=== PATIENT | female | born 1930 | race Caucasian/White ===

== ENCOUNTER 2017-06-29 09:22 | Inpatient (IN) | payer MEDICARE, BC ==
[~2017-06-29 09:22] MED LIST: Sodium Polystyrene Sulfonate 15 GM/60 ML Susp 60 ML Bot PO ONE
[2017-06-29] MEDS ORDERED: Sodium Chloride 0.9% 10 ML Syringe FLUSH PRN (09:59)
[2017-06-29] MEDS ORDERED: methylPREDNISolone Sodium Succinate 40 MG/1 ML SDV IVPUSH ONE (10:00)
[2017-06-29] MEDS ORDERED: Albuterol/Ipratropium 3.0-0.5 MG/3 ML Neb Soln NEB ONE (10:00)
[2017-06-29] MEDS ORDERED: Sodium Chloride 0.9% 500 ML IV SCH (10:00)
--- NOTE | 2017-06-29 10:32 | EDM.PDOC ---
ED HPI GENERAL MEDICAL PROBLEM - General Chief Complaint: Respiratory Problem Stated Complaint: [facility] Time Seen by Provider: 06/29/17 09:32 Source of Information: Reports: Patient, EMS History Limitations: Reports: No Limitations - History of Present Illness INITIAL COMMENTS - FREE TEXT/NARRATIVE: The patient presents with increased shortness of breath. She comes by ambulance. She was diagnosed with lung cancer 1 1/2 years ago. She opted to not treat the cancer. She has been getting progressively short of breath since before the diagnosis. She was at Dr Salinas's office on Friday and she was working on getting her some oxygen for at home. She also has some pain in her right lower chest. When EMS got her her oxygen saturations were in the 70s. They had her on 5L of oxygen by nasal cannula. She has no fever or chills. She has no abdominal pain, nausea or vomiting. She has generalized weakness and she has no appetite. She has no dysuria. The patient's fingers are purple. She does have Raynaud's phenomenon. Onset: Gradual Duration: Week(s): Location: Reports: Chest Quality: Reports: Sharp Severity: Mild Improves with: Reports: None Worsens with: Reports: None Associated Symptoms: Reports: Chest Pain, Shortness of Breath. Denies: Cough, Fever/Chills, Headaches, Nausea/Vomiting - Related Data Allergies Allergy/AdvReac Type Severity Reaction Status Date / Time No Known Allergies Allergy Verified 06/29/17 09:28 Home Meds: Home Meds Albuterol [Ventolin HFA] 2 puff INH Q4H PRN 06/29/17 [History] Hydrocodone/Acetaminophen [Hydrocodon-Acetaminophen 5-325] 1 tab PO Q4H PRN [History] Levothyroxine 75 mcg PO ACBREAKFAST 06/29/17 [History] Lisinopril 10 mg PO DAILY 06/29/17 [History] Rivaroxaban [Xarelto] 20 mg PO DAILY 06/29/17 [History] Past Medical History Cardiovascular History: Reports: Blood Clots/VTE/DVT, Hypertension Oncologic (Cancer) History: Reports: Lung Social & Family History - Tobacco Use Smoking Status *Q: Never Smoker Second Hand Smoke Exposure: Yes ED ROS GENERAL - Review of Systems Review Of Systems: See Below Constitutional: Reports: Malaise, Weakness, Fatigue. Denies: Fever, Chills HEENT: Reports: No Symptoms Respiratory: Reports: Shortness of Breath. Denies: Cough Cardiovascular: Reports: Chest Pain Endocrine: Reports: Fatigue GI/Abdominal: Reports: No Symptoms : Reports: No Symptoms Musculoskeletal: Reports: No Symptoms Skin: Reports: Other (Purple fingers) ED EXAM, GENERAL - Physical Exam Exam: See Below Exam Limited By: No Limitations General Appearance: Alert, No Apparent Distress Ears: Normal External Exam Nose: Normal Inspection Head: Atraumatic, Normocephalic Neck: Normal Inspection Respiratory/Chest: No Respiratory Distress, Decreased Breath Sounds, Wheezing ( Mild) Cardiovascular: Regular Rate, Rhythm, No Edema, No Murmur GI/Abdominal: Soft, Non-Tender, No Organomegaly, No Mass Back Exam: Normal Inspection Extremities: Normal Inspection Neurological: Alert, Oriented, No Motor/Sensory Deficits EKG INTERPRETATION EKG Date: 06/29/17 Time: 10:24 Rhythm: NSR Rate (Beats/Min): 87 [place]: Normal P-Wave: Present QRS: LBBB ST-T: Normal QT: Normal Course - Vital Signs Last Recorded V/S: Last Vital Signs Temp 96.5 F 06/29/17 09:28 Pulse 89 06/29/17 09:28 Resp 20 06/29/17 09:28 BP 131/79 06/29/17 09:28 Pulse Ox 98 06/29/17 10:00 - Orders/Labs/Meds Orders: Active Orders 24 hr Category Date Time Status Cardiac Monitoring [RC] . DIRECTED Care 06/29/17 09:59 Active EKG Documentation Completion [RC] STAT Care 06/29/17 10:00 Active Oxygen Therapy [RC] PRN Care 06/29/17 09:59 Active Peripheral IV Care [RC] . DIRECTED Care 06/29/17 09:59 Active RT Aerosol Therapy [RC] ASDIRECTED Care 06/29/17 10:00 Active Chest 1V Frontal [CR] Stat Exams 06/29/17 10:00 Taken Sodium Chloride 0.9% [Normal Saline] 1,000 ml Med 06/29/17 11:30 Active IV ASDIRECTED Sodium Chloride 0.9% [Normal Saline] 500 ml Med 06/29/17 10:00 Active IV .BOLUS Sodium Chloride 0.9% [Saline Flush] Med 06/29/17 09:59 Active 10 ml FLUSH ASDIRECTED PRN Peripheral IV Insertion Adult [OM.PC] Stat Oth 06/29/17 09:59 Ordered Medication Orders Sodium Chloride (Normal Saline) 500 mls @ 1,000 mls/hr IV .BOLUS JORGE Last Admin: 06/29/17 10:17 Dose: 1,000 mls/hr Sodium Chloride (Normal Saline) 1,000 mls @ 200 mls/hr IV ASDIRECTED JORGE Last Admin: 06/29/17 11:28 Dose: 200 mls/hr Sodium Chloride (Saline Flush) 10 ml FLUSH ASDIRECTED PRN PRN Reason: Keep Vein Open Last Admin: 06/29/17 10:32 Dose: 10 ml Labs: Laboratory Tests 06/29/17 06/29/17 Range/Units 10:05 10:05 WBC 10.40 H (3.98-10.04) K/mm3 RBC 4.21 (3.98-5.22) M/mm3 Hgb 12.0 (11.2-15.7) gm/L Hct 35.9 (34.1-44.9) % MCV 85.3 (79.4-94.8) fl MCH 28.5 (25.6-32.2) pg MCHC 33.4 (32.2-35.5) g/dl RDW Std Deviation 43.1 (36.4-46.3) fL Plt Count 332 (182-369) K/mm3 MPV 10.0 (9.4-12.3) fl Neut % (Auto) 77.8 H (34.0-71.1) % Lymph % (Auto) 5.7 L (19.3-51.7) % [place] % (Auto) 15.4 H (4.7-12.5) % Eos % (Auto) 0.1 L (0.7-5.8) Baso % (Auto) 0.1 (0.1-1.2) % Neut # (Auto) 8.10 H (1.56-6.13) K/mm3 Lymph # (Auto) 0.59 L (1.18-3.74) K/mm3 [place] # (Auto) 1.60 H (0.24-0.36) K/mm3 Eos # (Auto) 0.01 L (0.04-0.36) K/mm3 Baso # (Auto) 0.01 (0.01-0.08) K/mm3 Manual Slide Review Normal smear Sodium 122 L (136-145) mEq/L Potassium 5.7 H (3.5-5.1) mEq/L Chloride 88 L (98-107) mEq/L Carbon Dioxide 21 (21-32) mEq/L Anion Gap 18.7 H (5-15) BUN 49 H (7-18) mg/dL Creatinine 1.7 H (0.55-1.02) mg/dL Est Cr Clr Drug Dosing 17.69 mL/min Estimated GFR (MDRD) 29 (>60) mL/min BUN/Creatinine Ratio 28.8 H (14-18) Glucose 169 H (83-115) mg/dL Calcium 9.8 (8.5-10.1) mg/dL Total Bilirubin 0.5 (0.2-1.0) mg/dL AST 45 H (15-37) U/L ALT 72 H (14-59) U/L Alkaline Phosphatase 130 H (46-116) U/L Troponin I < 0.017 (0.00-0.056) ng/mL Total Protein 8.2 (6.4-8.2) g/dl Albumin 3.0 L (3.4-5.0) g/dl Globulin 5.2 gm/dL Albumin/Globulin Ratio 0.6 L (1-2) Meds: Medications Generic Name Dose Route Start Last Admin Trade Name Freq PRN Reason Stop Dose Admin Sodium Chloride 500 mls @ 1,000 mls/hr 06/29/17 10:00 06/29/17 10:17 Normal Saline IV 1,000 mls/hr .BOLUS JORGE Administration Sodium Chloride 1,000 mls @ 200 mls/hr 06/29/17 11:30 06/29/17 11:28 Normal Saline IV 200 mls/hr ASDIRECTED JORGE Administration Sodium Chloride 10 ml 06/29/17 09:59 06/29/17 10:32 Saline Flush FLUSH 10 ml ASDIRECTED PRN Administration Keep Vein Open Discontinued Medications Generic Name Dose Route Start Last Admin Trade Name Freq PRN Reason Stop Dose Admin Albuterol/Ipratropium 3 ml 06/29/17 10:00 06/29/17 10:30 Duoneb 3.0-0.5 Mg/3 Ml NEB 06/29/17 10:01 3 ml ONETIME ONE Administration Sodium Chloride 500 mls @ 1,000 mls/hr 06/29/17 10:54 Normal Saline IV 06/29/17 11:23 .BOLUS ONE Methylprednisolone Sodium Succinate 40 mg 06/29/17 10:00 06/29/17 10:17 Solu-Medrol IVPUSH 06/29/17 10:01 40 mg ONETIME ONE Administration Ondansetron HCl 4 mg 06/29/17 11:31 06/29/17 11:35 Zofran IVPUSH 06/29/17 11:32 4 mg ONETIME ONE Administration - Re-Assessments/Exams Free Text/Narrative Re-Assessment/Exam: 06/29/17 10:35 I ordered an IV NS 500ml bolus, duoneb, labs, EKG and CXR. 06/29/17 10:43 Her CXR shows cardiomegaly with small bilateral pleural effusions and mild upper lobe pulmonary vascular redistribution. Slight increased parenchymal density within the right upper and inferior right perihilar region which could represent small areas of pneumonia or atelectasis if patient has no infectious symptoms. Linear density compatible with scar or atelectasis with the left retrocardiac region. 06/29/17 11:18 Her WBC was slightly elevated at 10.4. Her Na was low at 122. Her K was elevated at 5.7. Her anion gap was elevated at 18.7. Her BUN was 49 and creatinine was 1.7. Her GFR was low at 29. Her glucose was 169. Her AST was elevated at 45 and ALT was elevated at 72. Her Alk phos was elevated at 130. Her troponin was negative. Her blood pressure when down into the mid 80s systolic. I ordered another bolus of 500mls. 06/29/17 11:54 I feel she needs to be admitted. I called Dr Kevin and he agreed to the admission. I do not feel she has pneumonia. The findings on the CXR are related to her lung cancer. Departure - Departure Time of Disposition: 12:00 Disposition: Refer to Observation Condition: Fair Clinical Impression: Hypoxia, Hyponatremia, Hyperkalemia, Renal insufficiency, Dehydration Lung cancer Qualifiers: Laterality: right Lung location: lower lobe of lung Qualified Code(s): C34.31 - Malignant neoplasm of lower lobe, right bronchus or lung Hypotension Qualifiers: Hypotension type: unspecified hypotension type Qualified Code(s): I95.9 - Hypotension, unspecified - Discharge Information Referrals: Joleen Salinas NP [Primary Care Provider] - Forms: ED Department Discharge - My Orders Last 24 Hours: My Active Orders 06/29/17 09:59 Cardiac Monitoring [RC] . DIRECTED Oxygen Therapy [RC] PRN Peripheral IV Care [RC] . DIRECTED Sodium Chloride 0.9% [Saline Flush] 10 ml FLUSH ASDIRECTED PRN Peripheral IV Insertion Adult [OM.PC] Stat 06/29/17 10:00 EKG Documentation Completion [RC] STAT RT Aerosol Therapy [RC] ASDIRECTED Chest 1V Frontal [CR] Stat Sodium Chloride 0.9% [Normal Saline] 500 ml IV .BOLUS 06/29/17 11:30 Sodium Chloride 0.9% [Normal Saline] 1,000 ml IV ASDIRECTED - Assessment/Plan Last 24 Hours: My Active Orders 06/29/17 09:59 Cardiac Monitoring [RC] . DIRECTED Oxygen Therapy [RC] PRN Peripheral IV Care [RC] . DIRECTED Sodium Chloride 0.9% [Saline Flush] 10 ml FLUSH ASDIRECTED PRN Peripheral IV Insertion Adult [OM.PC] Stat 06/29/17 10:00 EKG Documentation Completion [RC] STAT RT Aerosol Therapy [RC] ASDIRECTED Chest 1V Frontal [CR] Stat Sodium Chloride 0.9% [Normal Saline] 500 ml IV .BOLUS 06/29/17 11:30 Sodium Chloride 0.9% [Normal Saline] 1,000 ml IV ASDIRECTED
[2017-06-29] MEDS ORDERED: Sodium Chloride 0.9% 500 ML IV ONE (10:54)
[2017-06-29] MEDS ORDERED: Sodium Chloride 0.9% 1,000 ML IV SCH ×2 (11:30→15:30)
[2017-06-29] MEDS ORDERED: Ondansetron 4 MG/2 ML SDV IVPUSH ONE (11:31)
--- NOTE | 2017-06-29 12:00 | CR ---
Chest: Portable view of the chest was obtained. Comparison: No previous chest imaging is available. Heart is enlarged. Small bilateral pleural effusions are noted. Mild increased density within the right upper lung and within the right inferior perihilar region is seen. Linear density is seen within the left retrocardiac region. Minimal upper lobe vascular redistribution is seen. Impression: 1. Cardiomegaly with small bilateral pleural effusions and mild upper lobe pulmonary vascular redistribution. 2. Slight increased parenchymal density within the right upper and inferior right perihilar region which could represent small areas of pneumonia or atelectasis if patient has no infectious symptoms. 3. Linear density compatible with scar or atelectasis within the left retrocardiac region. Diagnostic code #3
[2017-06-29] MEDS ORDERED: hydrALAZINE 20 MG/ML SDV IVPUSH PRN (13:08)
[2017-06-29] MEDS ORDERED: Metoprolol Tartrate 5 MG/5 ML SDV IVPUSH PRN (13:08)
--- NOTE | 2017-06-29 13:08 | PCM.HP ---
H&P History of Present Illness - General Date of Service: 06/29/17 Admit Problem/Dx: Hypoxia Source of Information: Patient, Provider, RN Notes Reviewed History Limitations: Reports: Respiratory Distress - History of Present Illness Initial Comments - Free Text/Narative: This is an 86 yo elderly pleasant white female with past medical hx/o hypertension, history of lung cancer without treatment, hypothyroidism, Raynaud' s phenomenon, and history of VTE who presents to the emergency department with complaints of increasing shortness of breath. Patient was seen last Friday at her primary care's office for similar complaints and in the process of trying to get some oxygen for home use. Her pain is associated with chest discomfort, denies weakness, nausea without vomiting and anorexia. Prior to presentation to the emergency department, the patient was found sating in the low 70s and was on 5 L nasal cannula. Patient denies any signs of systemic infection. Her initial workup shows a CBC remarkable for WBC of 10.4, neutrophils of 77.8% , lymphocytes of 5.7%, monocytes of 15.4%, and eosinophils of 0.1%. Her chemistry is remarkable for sodium of 122, potassium of 5.7, chloride of 88, anion gap of 18.7, BUN of 49, creatinine of 1.7, glucose of 169, AST of 45, ALT of 72, alkaline phosphatase of 130, albumin of 3. Her chest x-ray reports reads cardiomegaly with small bilateral pleural effusions and mild upper lobe pulmonary vascular redistribution. Slight increased parenchymal density within the right upper and inferior right perihilar region linear density compatible with scar or atelectasis within the left retrocardiac region. Patient is being admitted primarily for end-of-life care. She is DNR/DNI with comfort measures. - Related Data Allergies/Adverse Reactions: Allergies Allergy/AdvReac Type Severity Reaction Status Date / Time No Known Allergies Allergy Verified 06/29/17 09:28 Home Medications: Home Meds Albuterol [Ventolin HFA] 2 puff INH Q4H PRN 06/29/17 [History] Hydrocodone/Acetaminophen [Hydrocodon-Acetaminophen 5-325] 1 tab PO Q4H PRN [History] Levothyroxine 75 mcg PO ACBREAKFAST 06/29/17 [History] Lisinopril 10 mg PO DAILY 06/29/17 [History] Rivaroxaban [Xarelto] 20 mg PO DAILY 06/29/17 [History] Past Medical History Cardiovascular History: Reports: Blood Clots/VTE/DVT, Hypertension Oncologic (Cancer) History: Reports: Lung Social & Family History - Tobacco Use Smoking Status *Q: Never Smoker Second Hand Smoke Exposure: Yes H&P Review of Systems - Review of Systems: Review Of Systems: See Below General: Reports: Malaise, Weakness, Fatigue. Denies: Fever, Chills HEENT: Reports: No Symptoms Pulmonary: Reports: Shortness of Breath. Denies: Pleuritic Chest Pain, Cough, Hemoptysis Cardiovascular: Denies: Chest Pain, Palpitations, Dyspnea on Exertion, Lightheadedness Gastrointestinal: Reports: Decreased Appetite, Flatus, Nausea. Denies: Abdominal Pain, Anorexia, Diarrhea, Difficulty Swallowing, Distension, Vomiting Genitourinary: Reports: No Symptoms Musculoskeletal: Reports: No Symptoms Skin: Reports: Change in Color (bilateral hands), Other (purple hands). Denies : Cyanosis, Diaphoresis, Dryness Psychiatric: Denies: Depression, Anxiety, Agitation, Suicidal Ideation Neurological: Reports: Weakness. Denies: Confusion, Dizziness, Difficulty Walking, Change in Speech, Gait Disturbance Hematologic/Lymphatic: Reports: No Symptoms Immunologic: Reports: No Symptoms Exam - Exam Exam: See Below - Vital Signs Vital Signs: Last Vital Signs Temp 35.8 C 06/29/17 09:28 Pulse 89 06/29/17 09:28 Resp 20 06/29/17 09:28 BP 131/79 06/29/17 09:28 Pulse Ox 98 06/29/17 10:00 Weight: 49.895 kg - Exam Quality Assessment: Supplemental Oxygen General: Alert, Oriented, Cooperative. No: Mild Distress HEENT: Conjunctiva Clear, EACs Clear, EOMI, Hearing Intact, Mucosa Moist & Vernal , Nares Patent, Normal Nasal Septum, Posterior Pharynx Clear, Pupils Reactive, TMs Clear Neck: Supple, Trachea Midline Lungs: Normal Respiratory Effort, Decreased Breath Sounds Cardiovascular: Regular Rate, Regular Rhythm GI/Abdominal Exam: Soft, Non-Tender, No Organomegaly, No Distention, No Abnormal Bruit, No Mass, Pelvis Stable, Abnormal Bowel Sounds (Female) Exam: Deferred Rectal (Female) Exam: Deferred Back Exam: Normal Inspection, Decreased Range of Motion Extremities: Normal Inspection, Normal Range of Motion, Non-Tender, No Pedal Edema, Normal Capillary Refill Peripheral Pulses: 2+: Posterior Tibial (L), Posterior Tibial (R), Dorsalis Pedis (L), Dorsalis Pedis (R) Skin: Warm, Dry, Intact Neuro Extensive - Mental Status: Oriented x3, Normal Cognition, Disorientation to Person Neuro Extensive - Motor, Sensory, Reflexes: CN II-XII Intact Psychiatric: Alert, Normal Affect, Normal Mood - Patient Data Lab Results Last 24 hrs: Laboratory Results - last 24 hr 06/29/17 06/29/17 Range/Units 10:05 10:05 WBC 10.40 H (3.98-10.04) K/mm3 RBC 4.21 (3.98-5.22) M/mm3 Hgb 12.0 (11.2-15.7) gm/L Hct 35.9 (34.1-44.9) % MCV 85.3 (79.4-94.8) fl MCH 28.5 (25.6-32.2) pg MCHC 33.4 (32.2-35.5) g/dl RDW Std Deviation 43.1 (36.4-46.3) fL Plt Count 332 (182-369) K/mm3 MPV 10.0 (9.4-12.3) fl Neut % (Auto) 77.8 H (34.0-71.1) % Lymph % (Auto) 5.7 L (19.3-51.7) % [place] % (Auto) 15.4 H (4.7-12.5) % Eos % (Auto) 0.1 L (0.7-5.8) Baso % (Auto) 0.1 (0.1-1.2) % Neut # (Auto) 8.10 H (1.56-6.13) K/mm3 Lymph # (Auto) 0.59 L (1.18-3.74) K/mm3 [place] # (Auto) 1.60 H (0.24-0.36) K/mm3 Eos # (Auto) 0.01 L (0.04-0.36) K/mm3 Baso # (Auto) 0.01 (0.01-0.08) K/mm3 Manual Slide Review Normal smear Sodium 122 L (136-145) mEq/L Potassium 5.7 H (3.5-5.1) mEq/L Chloride 88 L (98-107) mEq/L Carbon Dioxide 21 (21-32) mEq/L Anion Gap 18.7 H (5-15) BUN 49 H (7-18) mg/dL Creatinine 1.7 H (0.55-1.02) mg/dL Est Cr Clr Drug Dosing 17.69 mL/min Estimated GFR (MDRD) 29 (>60) mL/min BUN/Creatinine Ratio 28.8 H (14-18) Glucose 169 H (83-115) mg/dL Calcium 9.8 (8.5-10.1) mg/dL Total Bilirubin 0.5 (0.2-1.0) mg/dL AST 45 H (15-37) U/L ALT 72 H (14-59) U/L Alkaline Phosphatase 130 H (46-116) U/L Troponin I < 0.017 (0.00-0.056) ng/mL Total Protein 8.2 (6.4-8.2) g/dl Albumin 3.0 L (3.4-5.0) g/dl Globulin 5.2 gm/dL Albumin/Globulin Ratio 0.6 L (1-2) Result Diagrams: 06/29/17 10:05 06/29/17 17:28 EKG INTERPRETATION EKG Date: 06/29/17 Time: 10:24 Rhythm: NSR Rate (Beats/Min): 87 [place]: Normal P-Wave: Present QRS: LBBB ST-T: Normal QT: Normal *Q Meaningful Use (ADM) - VTE *Q VTE Criteria *Q: - Stroke *Q Stroke Criteria *Q: - AMI *Q AMI Criteria *Q: Problem List Initiated/Reviewed/Updated: Yes Orders Last 24hrs: Active Orders 24 hr Category Date Time Status Cardiac Monitoring [RC] . DIRECTED Care 06/29/17 09:59 Active EKG Documentation Completion [RC] STAT Care 06/29/17 10:00 Active Oxygen Therapy [RC] PRN Care 06/29/17 09:59 Active Peripheral IV Care [RC] . DIRECTED Care 06/29/17 09:59 Active RT Aerosol Therapy [RC] ASDIRECTED Care 06/29/17 10:00 Active Sodium Chloride 0.9% [Normal Saline] 1,000 ml Med 06/29/17 11:30 Active IV ASDIRECTED Sodium Chloride 0.9% [Normal Saline] 500 ml Med 06/29/17 10:00 Active IV .BOLUS Sodium Chloride 0.9% [Saline Flush] Med 06/29/17 09:59 Active 10 ml FLUSH ASDIRECTED PRN Peripheral IV Insertion Adult [OM.PC] Stat Oth 06/29/17 09:59 Ordered Medication Orders Sodium Chloride (Normal Saline) 500 mls @ 1,000 mls/hr IV .BOLUS JORGE Last Admin: 06/29/17 10:17 Dose: 1,000 mls/hr Sodium Chloride (Normal Saline) 1,000 mls @ 200 mls/hr IV ASDIRECTED JORGE Last Admin: 06/29/17 11:28 Dose: 200 mls/hr Sodium Chloride (Saline Flush) 10 ml FLUSH ASDIRECTED PRN PRN Reason: Keep Vein Open Last Admin: 06/29/17 10:32 Dose: 10 ml Assessment/Plan Comment:: Assessment/Plan: Acute: End of Life Care -Initial Admission -Carries a hx/o Lung Cancer Diagnosed 1/5 years Ago -She refused treatment and leave it to nature -She had been getting short of breath -Had seen her PCP this past Friday and in the process of getting her some Supplemental O2 for home use -She want's to be made comfortable with treatment -Patient is amenable to hospice/palliative consult Hypoxia/Shortness of Breath -2/2 Worsening Lung Cancer -CXR report reads cardiomegaly with small bilateral pleural effusions and mild upper lobe pulmonary vascular redistribution. Slight increased parenchymal density within the right upper any PE or perihilar region. Density compatible with scar atelectasis within the left retrocardiac region -Supplemental O2 to titrate to keep O2 sat at or > 92% -PRN Morphine for Dyspnea -Abx not indicated; she has no cough or fever Dehydration -2/2 poor oral intake/Anorexia -She has no appetite -IV Hydration -Monitor volume status FRANKIE -2/2 Volume Depletion and Poor Oral Intake -BUN 49; Cr 1.8; no baseline level -IV Hydration -Monitor output Hyponatremia -Na 122 -She is not on SSRIs of thiazide diuretics -Cannot r/o SIADH due to lung cancer; common with small cell lung carcinoma -Serum and Urine Osmolality -Already received NS and IVF in ED -Will switch to D5WNS and monitor response Hyperkalemia -K 5.7 -Kayexalate 45 mg po x1 and may repeat in AM -D5w and Insulin 10 units x1 -Re-check level Small Bilateral Pleural Effusion -Likely from malignancy -Monitor Chronic: HTN Lung Cancer Hypothyroidism Raynaud's Phenomenon 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
[2017-06-29] MEDS ORDERED: Promethazine 6.25 MG in Sodium Chloride 0.9% 50 ML IV PRN (13:09)
[2017-06-29] MEDS ORDERED: oxyCODONE 5 MG Tab PO PRN (13:09)
[2017-06-29] MEDS ORDERED: LORazepam 2 MG/ML MDV IV PRN (13:09)
[2017-06-29] MEDS ORDERED: HYDROmorphone 1 MG/ML Syringe IVPUSH PRN (13:09)
[2017-06-29] MEDS ORDERED: Acetaminophen 325 MG Tab PO PRN (13:09)
[2017-06-29] MEDS ORDERED: Bisacodyl 5 MG Tab PO PRN (13:11)
[2017-06-29] MEDS ORDERED: Temazepam 7.5 MG Cap PO PRN (13:11)
[2017-06-29] MEDS ORDERED: Docusate Sodium 100 MG Cap PO PRN (13:11)
[2017-06-29] MEDS ORDERED: Albuterol/Ipratropium 3.0-0.5 MG/3 ML Neb Soln NEB PRN (13:11)
[2017-06-29] MEDS ORDERED: Polyethylene Glycol 3350 Powder 17 GM Packet PO PRN (13:11)
[2017-06-29] MEDS ORDERED: ALBUTEROL INH PRN (13:14)
[2017-06-29] MEDS: Dronabinol 2.5 MG Cap PO SCH (17:34)
[2017-06-29] MEDS ORDERED: Sodium Polystyrene Sulfonate 15 GM/60 ML Susp 60 ML Bot PO ONE ×2 (19:53→23:45)
[2017-06-29] MEDS ORDERED: 50% Dextrose in Water 50 ML Syringe IVPUSH PRN (20:36)
[2017-06-29] MEDS ORDERED: Insulin NPH/Insulin Regular,Human 70-30 100 Units/ML 10 ML Vial SUBCUT ONE (20:42)
[2017-06-29] MEDS ORDERED: Dextrose 5%-0.9% NaCl 1,000 ML IV SCH (20:45)
[2017-06-29] MEDS ORDERED: Sodium Chloride 3% 500 ML IV SCH (20:45)
[2017-06-29] MEDS ORDERED: Megestrol 40 MG Tab PO SCH (21:00)
[2017-06-30] MEDS: Ondansetron 4 MG/2 ML SDV IV PRN ×2 (00:10→15:33)
[2017-06-30] MEDS ORDERED: Insulin Regular, Human 100 Units/ML 3 ML Vial SUBCUT ONE ×2 (00:15→23:45)
[2017-06-30] MEDS ORDERED: LEVOTHYROXINE 75 MCG PO SCH (06:00)
[2017-06-30] MEDS ORDERED: Diatrizoate Meglumine/Diatrizoate Sodium 37% 120 ML Bottle PO ONE (07:56)
[2017-06-30] MEDS ORDERED: Sodium Polystyrene Sulfonate 15 GM/60 ML Susp 60 ML Bot PO ONE (08:00)
--- NOTE | 2017-06-30 08:42 | CT ---
CT abdomen and pelvis Technique: Multiple axial sections were obtained from above the dome of the diaphragm inferiorly through the pubic symphysis. Oral contrast was utilized. No intravenous contrast is seen. Findings: Large pericardial effusion is seen. Small bilateral pleural effusions are noted. Atelectasis is seen within portions of the left lower lung and within the right middle lobe. Small amount of ascites is identified around the liver as well as small amount of free fluid within the pelvis. Stomach is dilated but shows no complete obstruction as contrast is seen within more distal bowel. Gastroparesis or partial gastric outlet obstruction is difficult to exclude. Noncontrast appearance of the kidneys appear within normal limits. Pancreas appears within normal limits. Gallbladder contains no calcified gallstones. Aorta shows atherosclerotic change which continues into the iliac vessels. Spleen appears within normal limits. Liver shows no focal parenchymal abnormality. No pelvic mass or adenopathy is seen. Bone window settings were reviewed which show severe disc space narrowing at L3-L4 through L5-S1 with vacuum phenomena. Degenerative apophyseal change also noted at these same levels. Lesser degenerative change is seen within other portions of the spine. Impression: 1. Small bilateral pleural effusions with bibasilar atelectasis. 2. Large pericardial effusion. 3. Small amount of ascites. 4. Dilated stomach containing contrast. Contrast noted within more distal portions of bowel ruling out complete gastric obstruction 5. Other incidental findings. Diagnostic code #3
[2017-06-30] MEDS ORDERED: HYDROmorphone 0.5 MG/0.5 ML Syringe IVPUSH PRN (08:45)
--- NOTE | 2017-06-30 08:58 | PCM.PN ---
- General Info Date of Service: 06/30/17 Admission Dx/Problem (Free Text): Hypoxia Subjective Update: Follow Up - Patient Data Vitals - Most Recent: Last Vital Signs Temp 36.6 C 06/30/17 04:00 Pulse 82 06/30/17 08:00 Resp 21 H 06/30/17 08:00 BP 94/76 06/30/17 08:00 Pulse Ox 91 L 06/30/17 08:00 Weight - Most Recent: 49.895 kg I&O - Last 24 Hours: Intake & Output 06/29/17 06/30/17 06/30/17 22:59 06:59 14:59 Intake Total 1957 1554 Balance 1957 1553 Lab Results Last 24 Hours: Laboratory Results - last 24 hr 06/29/17 06/30/17 06/30/17 Range/Units 17:28 05:45 05:45 WBC 11.40 H (3.98-10.04) K/mm3 RBC 3.85 L (3.98-5.22) M/mm3 Hgb 11.1 L (11.2-15.7) gm/L Hct 33.6 L (34.1-44.9) % MCV 87.3 (79.4-94.8) fl MCH 28.8 (25.6-32.2) pg MCHC 33.0 (32.2-35.5) g/dl RDW Std Deviation 45.3 (36.4-46.3) fL Plt Count 341 (182-369) K/mm3 MPV 10.7 (9.4-12.3) fl Neut % (Auto) 65.7 (34.0-71.1) % Lymph % (Auto) 6.0 L (19.3-51.7) % [place] % (Auto) 26.3 H (4.7-12.5) % Eos % (Auto) 0.1 L (0.7-5.8) Baso % (Auto) 0.2 (0.1-1.2) % Neut # (Auto) 7.50 H (1.56-6.13) K/mm3 Lymph # (Auto) 0.68 L (1.18-3.74) K/mm3 [place] # (Auto) 3.00 H (0.24-0.36) K/mm3 Eos # (Auto) 0.01 L (0.04-0.36) K/mm3 Baso # (Auto) 0.02 (0.01-0.08) K/mm3 Manual Slide Review Abnormal smear Sodium 125 L 126 L (136-145) mEq/L Potassium 6.0 H 6.0 H (3.5-5.1) mEq/L Chloride 93 L 95 L (98-107) mEq/L Carbon Dioxide 21 18 L (21-32) mEq/L Anion Gap 17.0 H 19.0 H (5-15) BUN 53 H 58 H (7-18) mg/dL Creatinine 1.8 H 2.6 H (0.55-1.02) mg/dL Est Cr Clr Drug Dosing 16.71 11.57 mL/min Estimated GFR (MDRD) 27 18 (>60) mL/min BUN/Creatinine Ratio 29.4 H 22.3 H (14-18) Glucose 144 H 167 H (83-115) mg/dL Calcium 8.7 8.2 L (8.5-10.1) mg/dL Magnesium 2.4 (1.8-2.4) mg/dl Med Orders - Current: Current Medications Acetaminophen (Tylenol) 650 mg PO Q4H PRN PRN Reason: Pain (Mild 1-3)/fever Albuterol (Proventil Hfa) 0 gm INH Q4H PRN PRN Reason: Shortness of Breath Albuterol/Ipratropium (Duoneb 3.0-0.5 Mg/3 Ml) 3 ml NEB Q4H PRN PRN Reason: Shortness Of Breath/wheezing Bisacodyl (Dulcolax) 5 mg PO DAILY PRN PRN Reason: Constipation Docusate Sodium (Colace) 100 mg PO BID PRN PRN Reason: Constipation Dronabinol (Marinol) 2.5 mg PO TIDAC [facility] Last Admin: 06/29/17 17:34 Dose: Not Given Hydralazine HCl (Apresoline) 10 mg IVPUSH Q4H PRN PRN Reason: Hypertension Hydromorphone HCl (Dilaudid) 0.25 mg IVPUSH Q2H PRN PRN Reason: Pain (severe 7-10) Promethazine HCl 6.25 mg/ (Sodium Chloride) 50.25 mls @ 100 mls/hr IV Q6H PRN PRN Reason: Nausea/Vomiting Dextrose/Sodium Chloride (Dextrose 5%-Normal Saline) 1,000 mls @ 125 mls/hr IV ASDIRECTED [facility] Last Admin: 06/30/17 00:10 Dose: 125 mls/hr Lorazepam (Ativan) 0.5 mg IV Q6H PRN PRN Reason: Anxiety Magnesium Sulfate (Pharmacy To Dose - Magnesium Replacement) 1 dose .XX ASDIRECTED [facility] Megestrol Acetate (Megace 40 Mg/Ml Susp) 400 mg PO BID [facility] Metoprolol Tartrate (Lopressor) 5 mg IVPUSH Q4H PRN PRN Reason: Tachycardia Levothyroxine [ Levothyroxine] 75mcg Own Med 75 mcg PO ACBREAKFAST [facility] Last Admin: 06/30/17 06:27 Dose: 75 mcg Rivaroxaban [Xarelto (] 20mg Own Med ) 20 mg PO DAILY [facility] Ondansetron HCl (Zofran) 4 mg IV Q4H PRN PRN Reason: Nausea/Vomiting Last Admin: 06/30/17 00:10 Dose: 4 mg Oxycodone HCl (Oxycodone) 5 mg PO Q4H PRN PRN Reason: Pain (moderate 4-6) Polyethylene Glycol (Miralax) 17 gm PO DAILY PRN PRN Reason: Constipation Potassium Chloride (Pharmacy To Dose - Potassium Replacement) 1 dose .XX ASDIRECTED [facility] Senna/Docusate Sodium (Senna Plus) 1 tab PO BID PRN PRN Reason: Constipation Sodium Chloride (Saline Flush) 10 ml FLUSH ASDIRECTED PRN PRN Reason: Keep Vein Open Last Admin: 06/29/17 10:32 Dose: 10 ml Temazepam (Restoril) 7.5 mg PO BEDTIME PRN PRN Reason: Sleep Discontinued Medications Albuterol/Ipratropium (Duoneb 3.0-0.5 Mg/3 Ml) 3 ml NEB ONETIME ONE Stop: 06/29/17 10:01 Last Admin: 06/29/17 10:30 Dose: 3 ml Dextrose/Water (Dextrose 50% In Water) 50 ml IVPUSH ASDIRECTED PRN PRN Reason: Other Diatrizoate Meglum/Diatrizoate Sod (Gastrografin 37%) 90 ml PO ONETIME ONE Stop: 06/30/17 07:57 Last Admin: 06/30/17 08:07 Dose: 90 ml Hydromorphone HCl (Dilaudid) 0.25 mg IVPUSH Q2H PRN PRN Reason: Pain (severe 7-10) Last Admin: 06/29/17 21:07 Dose: 0.25 mg Sodium Chloride (Normal Saline) 500 mls @ 1,000 mls/hr IV .BOLUS [facility] Last Admin: 06/29/17 10:17 Dose: 1,000 mls/hr Sodium Chloride (Normal Saline) 500 mls @ 1,000 mls/hr IV .BOLUS ONE Stop: 06/29/17 11:23 Last Admin: 06/29/17 16:13 Dose: Not Given Sodium Chloride (Normal Saline) 1,000 mls @ 200 mls/hr IV ASDIRECTED [facility] Last Admin: 06/29/17 11:28 Dose: 200 mls/hr Sodium Chloride (Normal Saline) 1,000 mls @ 100 mls/hr IV ASDIRECTED [facility] Last Admin: 06/29/17 16:26 Dose: 100 mls/hr Sodium Chloride (Sodium Chloride 3%) 500 mls @ 25 mls/hr IV ASDIRECTED [facility] Insulin Human Regular (Humulin R) 10 unit SUBCUT ONETIME ONE Stop: 06/30/17 00:16 Last Admin: 06/30/17 00:14 Dose: 10 unit Megestrol Acetate (Megace) 40 mg PO BID [facility] Last Admin: 06/29/17 21:37 Dose: Not Given Methylprednisolone Sodium Succinate (Solu-Medrol) 40 mg IVPUSH ONETIME ONE Stop: 06/29/17 10:01 Last Admin: 06/29/17 10:17 Dose: 40 mg Ondansetron HCl (Zofran) 4 mg IVPUSH ONETIME ONE Stop: 06/29/17 11:32 Last Admin: 06/29/17 11:35 Dose: 4 mg Sodium Polystyrene Sulfonate (Kayexalate) 45 gm PO ONETIME ONE Stop: 06/29/17 08:01 Last Admin: 06/29/17 23:18 Dose: Not Given Sodium Polystyrene Sulfonate (Kayexalate) 45 gm PO NOW ONE Stop: 06/29/17 23:46 Last Admin: 06/30/17 00:10 Dose: 45 gm Sodium Polystyrene Sulfonate (Kayexalate) 45 gm PO ONETIME ONE Stop: 06/30/17 08:01 - My Orders Last 24 Hours: My Active Orders 06/29/17 13:08 Metoprolol Tartrate [Lopressor] 5 mg IVPUSH Q4H PRN hydrALAZINE [Apresoline] 10 mg IVPUSH Q4H PRN 06/29/17 13:09 Height and Weight [RC] 0400 Up With Assistance [RC] ASDIRECTED Up ad Priscilla [RC] ASDIRECTED VTE/DVT Education [RC] 10 Vital Signs [RC] Q4HR Acetaminophen [Tylenol] 650 mg PO Q4H PRN LORazepam [Ativan] 0.5 mg IV Q6H PRN Ondansetron [Zofran] 4 mg IV Q4H PRN Promethazine [Phenergan] 6.25 mg Sodium Chloride 0.9% [Normal Saline] 50 ml IV Q6H oxyCODONE 5 mg PO Q4H PRN Resuscitation Status Routine 06/29/17 13:11 Oxygen Therapy [RC] PRN VTE/DVT Education [RC] PER UNIT ROUTINE Albuterol/Ipratropium [DuoNeb 3.0-0.5 MG/3 ML] 3 ml NEB Q4H PRN Bisacodyl [Dulcolax] 5 mg PO DAILY PRN Docusate Sodium [Colace] 100 mg PO BID PRN Docusate Sodium/Sennosides [Senna Plus] 1 tab PO BID PRN Polyethylene Glycol 3350 [MiraLAX] 17 gm PO DAILY PRN Temazepam [Restoril] 7.5 mg PO BEDTIME PRN 06/29/17 13:12 Consult to Case Management [CONS] Routine Consult to Tar Pot Worker [CONS] Routine Consult to Spiritual Care [CONS] Routine OT Evaluation and Treatment [CONS] Routine PT Evaluation and Treatment [CONS] Routine Respiratory Care Assess and Treatment [CONS] Routine 06/29/17 13:14 Albuterol [Proventil HFA] 0 gm INH Q4H PRN 06/29/17 13:15 Magnesium Rep Pharmacy to Dose [Pharmacy to Dose - Magnesium Replacement] 1 dose .XX ASDIRECTED Potassium Rep Pharmacy to Dose [Pharmacy to Dose - Potassium Replacement] 1 dose .XX ASDIRECTED 06/29/17 17:00 Dronabinol [Marinol] 2.5 mg PO TIDAC 06/29/17 20:20 Consult to End of Life Care [Consult to Palliative Care] [CONS] Routine 06/29/17 20:31 OSMOLALITY,URINE [URCHEM] Stat 06/29/17 20:45 Dextrose 5%-0.9% NaCl [Dextrose 5%-Normal Saline] 1,000 ml IV ASDIRECTED 06/29/17 Lunch Regular Diet [DIET] 06/30/17 06:00 Levothyroxine [Levothyroxine] 75 mcg PO ACBREAKFAST 06/30/17 08:45 HYDROmorphone [Dilaudid] 0.25 mg IVPUSH Q2H PRN 06/30/17 09:00 Megestrol [Megace 40 MG/ML Susp] 400 mg PO BID Rivaroxaban [Xarelto] 20 mg PO DAILY 07/01/17 05:11 BASIC METABOLIC PANEL,BMP [CHEM] AM CBC WITH AUTO DIFF [HEME] AM MAGNESIUM [CHEM] AM 07/02/17 05:11 BASIC METABOLIC PANEL,BMP [CHEM] AM CBC WITH AUTO DIFF [HEME] AM MAGNESIUM [CHEM] AM 07/03/17 05:11 BASIC METABOLIC PANEL,BMP [CHEM] AM CBC WITH AUTO DIFF [HEME] AM MAGNESIUM [CHEM] AM - Plan Plan:: Assessment/Plan: Acute: End of Life Care -Initial Admission -Carries a hx/o Lung Cancer Diagnosed 1/5 years Ago -She refused treatment and leave it to nature -She had been getting short of breath -Had seen her PCP this past Friday and in the process of getting her some Supplemental O2 for home use -She want's to be made comfortable with treatment -Patient is amenable to hospice/palliative consult Hypoxia/Shortness of Breath -2/2 Worsening Lung Cancer -CXR report reads cardiomegaly with small bilateral pleural effusions and mild upper lobe pulmonary vascular redistribution. Slight increased parenchymal density within the right upper any PE or perihilar region. Density compatible with scar atelectasis within the left retrocardiac region -Supplemental O2 to titrate to keep O2 sat at or > 92% -PRN Morphine for Dyspnea -Abx not indicated; she has no cough or fever Dehydration -2/2 poor oral intake/Anorexia -She has no appetite -IV Hydration -Monitor volume status FRANKIE -2/2 Volume Depletion and Poor Oral Intake -BUN 49; Cr 1.8; no baseline level -IV Hydration -Monitor output Hyponatremia -Na 122 -She is not on SSRIs of thiazide diuretics -Cannot r/o SIADH due to lung cancer; common with small cell lung carcinoma -Serum and Urine Osmolality -Already received NS and IVF in ED -Will switch to D5WNS and monitor response Hyperkalemia -K 5.7 -Kayexalate 45 mg po x1 and may repeat in AM -D5w and Insulin 10 units x1 -Re-check level Small Bilateral Pleural Effusion -Likely from malignancy -Monitor Chronic: HTN Lung Cancer Hypothyroidism Raynaud's Phenomenon 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
[2017-06-30] MEDS ORDERED: RIVAROXABAN 20 MG PO SCH (09:00)
[2017-06-30] MEDS: Dronabinol 2.5 MG Cap PO SCH ×3 (09:30→17:16)
[2017-06-30] MEDS: Megestrol Susp 40 MG/ML 10 ML UD Cup PO SCH ×2 (09:30→20:38)
[2017-06-30] MEDS ORDERED: Morphine 2 MG/ML Syringe IVPUSH PRN (16:37)
[2017-06-30] MEDS ORDERED: LORazepam 2 MG/ML MDV IV PRN ×2 (16:39→18:24)
[2017-06-30] MEDS ORDERED: Morphine 4 MG/ML Syringe IVPUSH PRN ×2 (16:48→18:24)
[2017-06-30] MEDS ORDERED: Morphine 4 MG/ML Syringe IVPUSH ONE (18:20)
--- NOTE | 2017-06-30 21:10 | PCM.DCSUM1 ---
Discharge Summary - Hospital Course Brief History: This is an 86 yo elderly pleasant white female with past medical hx/o hypertension, history of lung cancer without treatment, hypothyroidism, Raynaud's phenomenon, and history of VTE who presented to the emergency department with complaints of increasing shortness of breath. She was admitted for end of life care. - Discharge Data Discharge Date: 06/30/17 Discharge Disposition: 20 Condition: Good - Discharge Diagnosis/Problem(s) (1) Admission for end of life care SNOMED Code(s): 469498747 ICD Code: Z51.5 - ENCOUNTER FOR PALLIATIVE CARE Status: Acute (2) Dehydration SNOMED Code(s): 48013980 ICD Code: E86.0 - DEHYDRATION Status: Acute (3) Hyperkalemia SNOMED Code(s): 33114792 ICD Code: E87.5 - HYPERKALEMIA Status: Acute (4) Hyponatremia SNOMED Code(s): 15209834 ICD Code: E87.1 - HYPO-OSMOLALITY AND HYPONATREMIA Status: Acute (5) Hypotension SNOMED Code(s): 26734443 ICD Code: I95.9 - HYPOTENSION, UNSPECIFIED Status: Acute Qualifiers: Hypotension type: unspecified hypotension type Qualified Code(s): I95.9 - Hypotension, unspecified (6) Hypoxia SNOMED Code(s): 899762963 ICD Code: R09.02 - HYPOXEMIA Status: Acute (7) Lung cancer SNOMED Code(s): 300081310 ICD Code: C34.90 - MALIGNANT NEOPLASM OF UNSP PART OF UNSP BRONCHUS OR LUNG Status: Acute Qualifiers: Laterality: right Lung location: lower lobe of lung Qualified Code(s): C34.31 - Malignant neoplasm of lower lobe, right bronchus or lung (8) Renal insufficiency SNOMED Code(s): 675176705 ICD Code: N28.9 - DISORDER OF KIDNEY AND URETER, UNSPECIFIED Status: Acute (9) Comfort measures only status SNOMED Code(s): 49283843294547 ICD Code: Z51.5 - ENCOUNTER FOR PALLIATIVE CARE Status: Acute - Patient Summary/Data Operative Procedure(s) Performed: None Complications: None Consults: Consultations 06/29/17 20:20 Consult to End of Life Care [Consult to Palliative Care] [CONS] Routine Labs Pending at D/C: None Recommended Follow-up Testing/Procedures: None Planned Operative Procedure(s) after DC: None Hospital Course: Patient was primarily admitted for end of life care. She carried a hx/o advanced lung cancer w/o treatment. She presented to ED hypoxic but was provided supportive care. Upon admission to the floor, she made it clear she did not want any aggressive treatment. She directed pretty much the care she received during this admission. This morning she rescinded her code status to comfort measures only and hospice/palliative care was consulted. Sometime this evening the patient peacefully and comfortably with family at bedside. Her body was released to [facility] for processing. - Patient Instructions Other/Special Instructions: -Patient - Discharge Plan Home Medications: Home Meds Albuterol [Ventolin HFA] 2 puff INH Q4H PRN 06/29/17 [History] Hydrocodone/Acetaminophen [Hydrocodon-Acetaminophen 5-325] 1 tab PO Q4H PRN [History] Levothyroxine 75 mcg PO ACBREAKFAST 06/29/17 [History] Lisinopril 10 mg PO DAILY 06/29/17 [History] Rivaroxaban [Xarelto] 20 mg PO DAILY 06/29/17 [History] Referrals: Joleen Salinas, [employer] [Primary Care Provider] - - Discharge Summary/Plan Comment DC Time >30 min.: No Discharge Summary/Plan Comment: Discharge to [facility] - General Info Date of Service: 06/30/17 Admission Dx/Problem (Free Text: End of Life Care - Review of Systems Systems Review Comment: Patient - Patient Data Vitals - Most Recent: Last Vital Signs Temp 36.6 C 06/30/17 04:00 Pulse 82 06/30/17 08:00 Resp 21 H 06/30/17 08:00 BP 94/76 06/30/17 08:00 Pulse Ox 91 L 06/30/17 08:00 Weight - Most Recent: 49.895 kg I&O - Last 24 hours: Intake & Output 06/30/17 06/30/17 06/30/17 06:59 14:59 22:59 Intake Total 1554 352 Balance 1554 352 Lab Results - Last 24 hrs: Laboratory Results - last 24 hr 06/30/17 06/30/17 Range/Units 05:45 05:45 WBC 11.40 H (3.98-10.04) K/mm3 RBC 3.85 L (3.98-5.22) M/mm3 Hgb 11.1 L (11.2-15.7) gm/L Hct 33.6 L (34.1-44.9) % MCV 87.3 (79.4-94.8) fl MCH 28.8 (25.6-32.2) pg MCHC 33.0 (32.2-35.5) g/dl RDW Std Deviation 45.3 (36.4-46.3) fL Plt Count 341 (182-369) K/mm3 MPV 10.7 (9.4-12.3) fl Neut % (Auto) 65.7 (34.0-71.1) % Lymph % (Auto) 6.0 L (19.3-51.7) % [facility] % (Auto) 26.3 H (4.7-12.5) % Eos % (Auto) 0.1 L (0.7-5.8) Baso % (Auto) 0.2 (0.1-1.2) % Neut # (Auto) 7.50 H (1.56-6.13) K/mm3 Lymph # (Auto) 0.68 L (1.18-3.74) K/mm3 [facility] # (Auto) 3.00 H (0.24-0.36) K/mm3 Eos # (Auto) 0.01 L (0.04-0.36) K/mm3 Baso # (Auto) 0.02 (0.01-0.08) K/mm3 Manual Slide Review Abnormal smear Sodium 126 L (136-145) mEq/L Potassium 6.0 H (3.5-5.1) mEq/L Chloride 95 L (98-107) mEq/L Carbon Dioxide 18 L (21-32) mEq/L Anion Gap 19.0 H (5-15) BUN 58 H (7-18) mg/dL Creatinine 2.6 H (0.55-1.02) mg/dL Est Cr Clr Drug Dosing 11.57 mL/min Estimated GFR (MDRD) 18 (>60) mL/min BUN/Creatinine Ratio 22.3 H (14-18) Glucose 167 H (83-115) mg/dL Calcium 8.2 L (8.5-10.1) mg/dL Magnesium 2.4 (1.8-2.4) mg/dl Med Orders - Current: Current Medications Acetaminophen (Tylenol) 650 mg PO Q4H PRN PRN Reason: Pain (Mild 1-3)/fever Albuterol (Proventil Hfa) 0 gm INH Q4H PRN PRN Reason: Shortness of Breath Albuterol/Ipratropium (Duoneb 3.0-0.5 Mg/3 Ml) 3 ml NEB Q4H PRN PRN Reason: Shortness Of Breath/wheezing Bisacodyl (Dulcolax) 5 mg PO DAILY PRN PRN Reason: Constipation Docusate Sodium (Colace) 100 mg PO BID PRN PRN Reason: Constipation Dronabinol (Marinol) 2.5 mg PO TIDAC [facility] Last Admin: 06/30/17 17:16 Dose: Not Given Hydralazine HCl (Apresoline) 10 mg IVPUSH Q4H PRN PRN Reason: Hypertension Promethazine HCl 6.25 mg/ (Sodium Chloride) 50.25 mls @ 100 mls/hr IV Q6H PRN PRN Reason: Nausea/Vomiting Lorazepam (Ativan) 2 mg IV Q6H PRN PRN Reason: Anxiety Last Admin: 06/30/17 18:50 Dose: 2 mg Magnesium Sulfate (Pharmacy To Dose - Magnesium Replacement) 1 dose .XX ASDIRECTED [facility] Megestrol Acetate (Megace 40 Mg/Ml Susp) 400 mg PO BID [facility] Last Admin: 06/30/17 20:38 Dose: Not Given Metoprolol Tartrate (Lopressor) 5 mg IVPUSH Q4H PRN PRN Reason: Tachycardia Morphine Sulfate (Morphine) 4 mg IVPUSH Q3H PRN PRN Reason: Other Levothyroxine [ Levothyroxine] 75mcg Own Med 75 mcg PO ACBREAKFAST [facility] Last Admin: 06/30/17 06:27 Dose: 75 mcg Rivaroxaban [Xarelto (] 20mg Own Med ) 20 mg PO DAILY [facility] Last Admin: 06/30/17 09:31 Dose: Not Given Ondansetron HCl (Zofran) 4 mg IV Q4H PRN PRN Reason: Nausea/Vomiting Last Admin: 06/30/17 15:33 Dose: 4 mg Oxycodone HCl (Oxycodone) 5 mg PO Q4H PRN PRN Reason: Pain (moderate 4-6) Polyethylene Glycol (Miralax) 17 gm PO DAILY PRN PRN Reason: Constipation Potassium Chloride (Pharmacy To Dose - Potassium Replacement) 1 dose .XX ASDIRECTED [facility] Senna/Docusate Sodium (Senna Plus) 1 tab PO BID PRN PRN Reason: Constipation Sodium Chloride (Saline Flush) 10 ml FLUSH ASDIRECTED PRN PRN Reason: Keep Vein Open Last Admin: 06/29/17 10:32 Dose: 10 ml Temazepam (Restoril) 7.5 mg PO BEDTIME PRN PRN Reason: Sleep Discontinued Medications Albuterol/Ipratropium (Duoneb 3.0-0.5 Mg/3 Ml) 3 ml NEB ONETIME ONE Stop: 06/29/17 10:01 Last Admin: 06/29/17 10:30 Dose: 3 ml Dextrose/Water (Dextrose 50% In Water) 50 ml IVPUSH ASDIRECTED PRN PRN Reason: Other Diatrizoate Meglum/Diatrizoate Sod (Gastrografin 37%) 90 ml PO ONETIME ONE Stop: 06/30/17 07:57 Last Admin: 06/30/17 08:07 Dose: 90 ml Hydromorphone HCl (Dilaudid) 0.25 mg IVPUSH Q2H PRN PRN Reason: Pain (severe 7-10) Last Admin: 06/29/17 21:07 Dose: 0.25 mg Hydromorphone HCl (Dilaudid) 0.25 mg IVPUSH Q2H PRN PRN Reason: Pain (severe 7-10) Last Admin: 06/30/17 11:33 Dose: 0.25 mg Sodium Chloride (Normal Saline) 500 mls @ 1,000 mls/hr IV .BOLUS [facility]ORGE Last Admin: 06/29/17 10:17 Dose: 1,000 mls/hr Sodium Chloride (Normal Saline) 500 mls @ 1,000 mls/hr IV .BOLUS ONE Stop: 06/29/17 11:23 Last Admin: 06/29/17 16:13 Dose: Not Given Sodium Chloride (Normal Saline) 1,000 mls @ 200 mls/hr IV ASDIRECTED [facility] Last Admin: 06/29/17 11:28 Dose: 200 mls/hr Sodium Chloride (Normal Saline) 1,000 mls @ 100 mls/hr IV ASDIRECTED [facility] Last Admin: 06/29/17 16:26 Dose: 100 mls/hr Sodium Chloride (Sodium Chloride 3%) 500 mls @ 25 mls/hr IV ASDIRECTED [facility] Dextrose/Sodium Chloride (Dextrose 5%-Normal Saline) 1,000 mls @ 125 mls/hr IV ASDIRECTED [facility] Last Admin: 06/30/17 00:10 Dose: 125 mls/hr Insulin Human Regular (Humulin R) 10 unit SUBCUT ONETIME ONE Stop: 06/30/17 00:16 Last Admin: 06/30/17 00:14 Dose: 10 unit Lorazepam (Ativan) 0.5 mg IV Q6H PRN PRN Reason: Anxiety Lorazepam (Ativan) 1 mg IV Q6H PRN PRN Reason: Anxiety Megestrol Acetate (Megace) 40 mg PO BID [facility] Last Admin: 06/29/17 21:37 Dose: Not Given Methylprednisolone Sodium Succinate (Solu-Medrol) 40 mg IVPUSH ONETIME ONE Stop: 06/29/17 10:01 Last Admin: 06/29/17 10:17 Dose: 40 mg Morphine Sulfate (Morphine) 2 mg IVPUSH Q4H PRN PRN Reason: Other Morphine Sulfate (Morphine) 2 mg IVPUSH Q4H PRN PRN Reason: Other Last Admin: 06/30/17 16:54 Dose: 2 mg Morphine Sulfate (Morphine) 3 mg IVPUSH ONETIME ONE Stop: 06/30/17 18:21 Last Admin: 06/30/17 18:50 Dose: 3 mg Ondansetron HCl (Zofran) 4 mg IVPUSH ONETIME ONE Stop: 06/29/17 11:32 Last Admin: 06/29/17 11:35 Dose: 4 mg Sodium Polystyrene Sulfonate (Kayexalate) 45 gm PO ONETIME ONE Stop: 06/29/17 08:01 Last Admin: 06/29/17 23:18 Dose: Not Given Sodium Polystyrene Sulfonate (Kayexalate) 45 gm PO NOW ONE Stop: 06/29/17 23:46 Last Admin: 06/30/17 00:10 Dose: 45 gm Sodium Polystyrene Sulfonate (Kayexalate) 45 gm PO ONETIME ONE Stop: 06/30/17 08:01 Last Admin: 06/30/17 09:30 Dose: Not Given - Exam Physical Findings Comments:: Patient *Q Meaningful Use (DIS) - VTE *Q VTE Criteria *Q: - Stroke *Q Stroke Criteria *Q: - AMI *Q AMI Criteria *Q:
== END 2017-06-30 20:52 | disposition expired | DRG 181 ==
LOC: JD.ED 09:22 → JD.MS 12:48 → UNDOADMOB 12:48 → JD.MS 15:04 → INTOOBSV 17:26 → OBSVTOIN 17:26 → JD.MS 19:45 → UNDODISIN 06-30 20:52
PROVIDERS: ADMIT Internal Medicine; ATTEND Internal Medicine
DX: C34.31 Malignant neoplasm of lower lobe, right bronchus or lung (principal); N17.9 Acute kidney failure, unspecified; E87.1 Hypo-osmolality and hyponatremia; J90 Pleural effusion, not elsewhere classified; N28.9 Disorder of kidney and ureter, unspecified; R09.02 Hypoxemia; E86.0 Dehydration; E87.5 Hyperkalemia; F50.89 Other specified eating disorder; I10 Essential (primary) hypertension; E03.9 Hypothyroidism, unspecified; Z86.718 Personal history of other venous thrombosis and embolism; Z79.01 Long term (current) use of anticoagulants; I73.00 Raynaud's syndrome without gangrene; Z66 Do not resuscitate; Z51.5 Encounter for palliative care; I95.9 Hypotension, unspecified; Z79.899 Other long term (current) drug therapy
CPT/HCPCS: 36415; 71045; 80053; 83930; 84484; 85025; 93005; 94640; 96361 ×2; 96374; 96375 ×2; 99285; A9270; G0378 ×2; J2405; J2920; J7040 ×3; J7050; 74176; 74176-26; 80048; 83735; 93010; 96376; 99222; 99238; J1170; J1817; J2060; J2270; J7042